=== PATIENT | female | born 1975 | race Caucasian/White ===

== ENCOUNTER 2017-04-25 08:23 | Emergency (ER) | payer OTHER ==
[~2017-04-25] VITALS: Ht 152.4 cm; Wt 54.4 kg
[2017-04-25] MEDS ORDERED: FLAGYL500MG (08:43)
[2017-04-25] MEDS ORDERED: ZANTAC 7575 MG (08:44)
== END 2017-04-25 14:30 | disposition home or self-care (01) ==
LOC: ER 08:23
DX: K52.9 Noninfective gastroenteritis and colitis, unspecified (principal); K21.9 Gastro-esophageal reflux disease without esophagitis